=== PATIENT | female | born 2005 | race Caucasian/White ===

== ENCOUNTER 2023-01-20 18:30 | Inpatient (IN) | payer OTHER, SELFPAY ==
--- NOTE | ~2023-01-20 | US_ITS ---
EXAMINATION: US venous doppler [facility] DATE: 01/23/2023 12:24 INDICATION: Lower limb swelling. TECHNIQUE: Grayscale ultrasound images without and with compression and Doppler ultrasound images of the bilateral lower extremity veins were obtained. COMPARISON: None. FINDINGS: The visualized portions of right common femoral vein, profunda (deep) femoral vein, femoral vein, pop liteal vein, peroneal veins, posterior tibial veins, and greater saphenous vein outflow are patent. The visualized portions of left common femoral vein, profunda femoral vein, femoral vein, popliteal v ein, peroneal veins, posterior tibial veins, and greater saphenous vein outflow are patent. IMPRESSION: 1. No deep venous thrombosis. Reviewed, dictated and finalized at location A.
--- NOTE | ~2023-01-20 | CT_ITS ---
Clinical Indication: Chest pain, abdominal pain CT Scan of the Chest, Abdomen, and Pelvis without Contrast: Technique: Contiguous sections were acquired throughout the chest, abdomen, and pelvis without oral o r IV contrast initiation. Dose reduction technique was used on this scan by utilizing automated expos ure control and iterative reconstruction technique. The dose-length product (DLP) was 2301.62 mGy-cm. Findings: There is no evidence of any significant mediastinal, hilar or axillary lymphadenopathy. The mediastin al soft tissues appear normal. There is no evidence of pleural or pericardial effusion. The lungs are clear. No pulmonary nodules or infiltrates are noted. The liver, spleen, pancreas, gallbladder, and adrenal glands are within normal limits. Hyperdense jonnie al medulla are present bilaterally. No evidence of aortic aneurysm. No lymphadenopathy. No bowel obstruction or bowel wall thickening. There is no evidence to suggest acute appendicitis. Urinary bladder is unremarkable. No adnexal mass seen. No ascites. Impression: No significant abnormalities seen. Reviewed, dictated and finalized at [facility]. Impression: No significant abnormalities seen.
--- NOTE | ~2023-01-20 | XR_ITS ---
EXAMINATION: XR chest 2V DATE: 01/23/2023 11:38 INDICATION: Chest pain. Shortness of breath. TECHNIQUE: Frontal and lateral views of the chest were obtained. COMPARISON: Chest 2 views 01/20/2023, chest CT 01/20/2023 FINDINGS: The chest demonstrates clear lungs without pneumonia, pleural effusion, or pneumothorax. Th e heart size is normal. IMPRESSION: 1. No acute cardiopulmonary disease. Reviewed, dictated and finalized at location A.
--- NOTE | ~2023-01-20 | XR_ITS ---
EXAMINATION: XR chest 2V DATE: 01/20/2023 18:54 INDICATION: Chest pain TECHNIQUE: PA and lateral views of the chest were obtained. COMPARISON: None FINDINGS: Increased interstitial opacities with bronchial wall thickening in the right infrahilar region. No fo andrew airspace consolidation, pleural effusion or pneumothorax. The cardiomediastinal silhouette is nor mal. Visualized bones and soft tissues are unremarkable. IMPRESSION: 1. Increased interstitial pattern with bronchial wall thickening in the right infrahilar region which can be seen with bronchitis, reactive airway disease/asthma, mild pulmonary edema or early pneumonia . Reviewed, dictated and finalized at location A. IMPRESSION: 1. Increased interstitial pattern with bronchial wall thickening in the right i nfrahilar region which can be seen with bronchitis, reactive airway disease/ast hma, mild pulmonary edema or early pneumonia.
--- NOTE | ~2023-01-20 | US_ITS ---
EXAMINATION: US venous doppler [facility] DATE: 01/23/2023 12:24 INDICATION: Upper limb swelling. TECHNIQUE: Grayscale ultrasound images without and with compression and Doppler ultrasound images of the bilateral upper extremity veins were obtained. COMPARISON: None. FINDINGS: The visualized portions of the right internal jugular vein, subclavian vein, axillary vein, brachial veins, basilic vein, cephalic vein, radial vein, and ulnar vein are patent. The visualized portions of the left internal jugular vein, subclavian vein, axillary vein, brachial v eins, basilic vein, cephalic vein, radial vein, and ulnar vein are patent. IMPRESSION: 1. No deep venous thrombosis. Reviewed, dictated and finalized at location A.
--- NOTE | ~2023-01-20 | NM_ITS ---
EXAMINATION: NM pulmonary perfusion DATE: 01/23/2023 11:35 INDICATION: Shortness of breath. Chest pain. TECHNIQUE: 6.0 mCi Tc-99m MAA was administered intravenously for perfusion images. Scintigraphic lou ges of the chest were obtained. COMPARISON: CT 01/20/2023, chest 2 views 01/23/2023 FINDINGS: Perfusion images show no defects. IMPRESSION: 1. Pulmonary embolism absent (normal perfusion). Reviewed, dictated and finalized at location A.
--- NOTE | ~2023-01-20 | NM_ITS ---
EXAMINATION: NM hepatobiliary w pharm DATE: 01/24/2023 12:44 INDICATION: Right upper quadrant abdominal pain. COMPARISON: CT abdomen and pelvis 01/20/2023 TECHNIQUE: 4.8 mCi Tc-99m mebrofenin (Choletec) was administered intravenously. Scintigraphic images of the abdomen were obtained for one hour. Then, the patient drank 8 oz Ensure, and imaging was cont inued for 60 minutes. FINDINGS: There is normal clearance of radiotracer from the blood pool. There is homogeneous tracer u ptake by the liver. Activity progresses to the bowel and gallbladder. Gallbladder ejection fraction (GBEF) was 2%. Note that with this technique, normal GBEF >= 33%. IMPRESSION: 1. Low gallbladder ejection fraction, consistent with gallbladder dysfunction and/or chronic cholecy stitis. Reviewed, dictated and finalized at location A. IMPRESSION: 1. Low gallbladder ejection fraction, consistent with gallbladder dysfunction and/or chronic cholecystitis.
--- NOTE | ~2023-01-20 | US_ITS ---
US abdomen limited DATE: 01/21/2023 10:23 INDICATION: Right upper quadrant abdominal pain TECHNIQUE: Real-time imaging of liver, pancreas, gallbladder areas COMPARISON: 01/20/2023 CT chest abdomen pelvis FINDINGS: No gallbladder wall thickening. No gallstones. No pericholecystic fluid collection. Negativ e sonographic Long's sign. The common bile duct measures 3.7 mm, normal. The pancreatic tail is obscured 3 by bowel gas. The pancreas is otherwise unremarkable. IMPRESSION: Negative gallbladder Limited evaluation of pancreas Reviewed, dictated and finalized at Location A. Reviewed, dictated and finalized at location A.
[2023-01-20 18:32] VITALS: BP 171/75; PULSE 109; RESP 20; TEMP 36.6; O2SAT 100
--- NOTE | 2023-01-20 18:42 | ECG_ITS ---
Measurements Intervals [place] Rate: 110 P: 35 MD: 140 QRS: 15 QRSD: 89 T: 23 QT: 322 QTc: 436 Interpretive Statements SINUS TACHYCARDIA MODERATE VOLTAGE CRITERIA FOR LVH, CONSIDER NORMAL VARIANT [MEETS CRITERIA IN ONE OF: R(aVL), S(V1), R(V5), R(V5/V6)+S(V1)] ABNORMAL RHYTHM ECG NO PREVIOUS ECG AVAILABLE FOR COMPARISON Electronically Signed On 01-21-2023 9:37:53 CDT by Petros Dennis M.D.
[2023-01-20] MEDS: ASPIRIN 81 MG CHEWABLE TABLET 324 MG PO (19:09)
[2023-01-20 19:12] VITALS: PULSE 105
[2023-01-20 19:13] VITALS: O2SAT 100
[2023-01-20 19:16] VITALS: BP 154/92; PULSE 110; RESP 16; TEMP 36.2; O2SAT 97
[2023-01-20 19:17] LABS: Hemoglobin 12.2 g/dL (12.0-15.0); Mean Corpuscular HGB Conc 31.3 g/dl (32-36); Mean Corpuscular Hemoglobin 25.1 pg (26-34); Mean Corpuscular Volume 80.2 fl (80-100); Mean Platelet Volume 9.1 fl (7.4-10.4); Platelet Count Result 560 k/mm3 (150-375); Red Blood Count 4.86 M/mm3 (4.2-5.4); Red Cell Distribution Width 15.6 % (11.5-14.5); White Blood Count 22.1 K/mm3 (4.5-10.0)
[2023-01-20 19:27] LABS: Alanine Aminotransferase 22 U/L (6-35); Albumin Level 4.4 g/dL (3.7-5.6); Alkaline Phosphatase 141 U/L (45-116); Anion Gap 9 mmol/L (8-16); Aspartate Amino Transferase 27 U/L (14-36); Bilirubin,Total 0.5 mg/dL (0.2-1.3); Blood Urea Nitrogen 10 mg/dL (8-21); Calcium 8.5 mg/dL (8.9-10.7); Carbon Dioxide 25 mmol/L (22-30); Chloride 105 mmol/L (98-107); Estimated CRCL calculation 197 ml/min; Estimated Glomerular Filt Rate > 60; Glucose 99 mg/dL (65-110); Lipase 85 U/L (23-300); Potassium 3.6 mmol/L (3.4-5.0); Sodium 139 mmol/L (134-143)
[2023-01-20 19:28] LABS: Partial Thromboplastin Time 28.1 SECONDS (22.3-36.8); Prothrombin Time 13.2 Seconds (11.1-14.7)
[2023-01-20 19:39] LABS: Troponin I < 0.012 ng/mL (0.000-0.034)
[2023-01-20 19:41] LABS: Lymphocytes Absolute Manual 5.74 K/mm3 (1.1-4.5); Monocytes Absolute Manual 0.66 K/mm3 (0.1-0.90); Monocytes Percent Manual 3 % (3-9); Neutrophils Percent Manual 71 % (46-73); Total Cells Counted 100
[2023-01-20 19:42] LABS: Hypochromasia 1+ (NORMAL); Platelet Estimate Increased (Adequate); Schistocytes None Seen (NORMAL)
[2023-01-20 19:43] LABS: Anisocytosis 2+ (NORMAL)
[2023-01-20 20:31] VITALS: BP 151/77; PULSE 98; RESP 15; O2SAT 98
--- NOTE | 2023-01-20 21:50 | PC.NURSE ---
Bedside taken negative.
[2023-01-20 22:50] VITALS: BP 123/87; PULSE 103; RESP 15; O2SAT 100
[2023-01-20 23:09] LABS: Troponin I < 0.012 ng/mL (0.000-0.034)
[2023-01-21] VITALS (27 sets, daily range): BP systolic 116–152; BP diastolic 57–89; PULSE 71–114; RESP 14–20; TEMP 36.1–36.5; O2SAT 95–100; BMI 52.4
--- NOTE | 2023-01-21 00:48 | PM.IMHP ---
H&P: HPI History of Present Illness Date/Time: 01/21/23 00:48 Chief Complaint: Chest discomfort Narrative: This is a 17-year-old female with past medical history significant for morbid obesity. Patient presents today to the emergency room after new onset retrosternal chest pain nonradiating, has some shortness of breath associated with it and dizziness happened while she was sitting at her job she was her lunch break had been lifting heavy equipment and boxes, had been in her usual state of health the day before and up until that moment although has really bad reflux denies any shortness of breath, cough, sputum production, fevers, rigors, chills, nausea, vomiting, diarrhea, abdominal pain, leg swelling, . Preliminary workup was significant for chest x-ray was reported as: EXAMINATION: XR chest 2V DATE: 01/20/2023 18:54 INDICATION: Chest pain TECHNIQUE: PA and lateral views of the chest were obtained. COMPARISON: None FINDINGS: Increased interstitial opacities with bronchial wall thickening in the right infrahilar region. No focal airspace consolidation, pleural effusion or pneumothorax. The cardiomediastinal silhouette is normal. Visualized bones and soft tissues are unremarkable. IMPRESSION: 1. Increased interstitial pattern with bronchial wall thickening in the right infrahilar region which can be seen with bronchitis, reactive airway disease/asthma, mild pulmonary edema or early pneumonia. Clinical Indication: Chest pain, abdominal pain CT Scan of the Chest, Abdomen, and Pelvis without Contrast: Technique: Contiguous sections were acquired throughout the chest, abdomen, and pelvis without oral or IV contrast initiation. Dose reduction technique was used on this scan by utilizing automated exposure control and iterative reconstruction technique. The dose-length product (DLP) was 2301.62 mGy-cm. Findings: There is no evidence of any significant mediastinal, hilar or axillary lymphadenopathy. The mediastinal soft tissues appear normal. There is no evidence of pleural or pericardial effusion. The lungs are clear. No pulmonary nodules or infiltrates are noted. The liver, spleen, pancreas, gallbladder, and adrenal glands are within normal limits. Hyperdense renal medulla are present bilaterally. No evidence of aortic aneurysm.? No lymphadenopathy. No bowel obstruction or bowel wall thickening. There is no evidence to suggest acute appendicitis. Urinary bladder is unremarkable. No adnexal mass seen. No ascites. Impression: No significant abnormalities seen. US abdomen limited DATE: 01/21/2023 10:23 INDICATION: Right upper quadrant abdominal pain? TECHNIQUE: Real-time imaging of liver, pancreas, gallbladder areas? COMPARISON: 01/20/2023 CT chest abdomen pelvis? FINDINGS: No gallbladder wall thickening. No gallstones. No pericholecystic fluid collection. Negative sonographic Long's sign. The common bile duct measures 3.7 mm, normal. The pancreatic tail is obscured 3 by bowel gas. The pancreas is otherwise unremarkable.? IMPRESSION: Negative gallbladder Limited evaluation of pancreas? Review of Systems Review of Systems: Retrosternal chest pain, shortness of breath, dizziness. Constitutional: Constitutional: Denies chills, Denies fatigue, Denies fever(s), Denies malaise, Denies night sweats and Denies weakness Eyes: Eyes: Denies change in vision ENT: Denies dysphagia and Denies odynophagia Cardiovascular: Cardiovascular: Reports chest pain, Denies leg edema, Reports lightheadedness, Denies radiating jaw, neck or arm pain, Denies palpitations and Reports dyspnea Respiratory: Respiratory: Denies chest congestion, Denies cough, Denies excessive phlegm production and Denies wheezing Gastrointestinal: Gastrointestinal: Denies abdominal pain, Denies dyspepsia, Reports heartburn, Denies diarrhea, Denies nausea and Denies vomiting Genitourinary: Genitourinary: Denies dysuria and Denies flank pain
--- NOTE | 2023-01-21 00:53 | ED.GENADULT ---
HPI - General Adult General Chief complaint: Chest Pain Stated complaint: chest pain/SOB Time Seen by Provider: 01/20/23 20:23 History of Present Illness HPI narrative: Patient is a 17-year-old female who presents the emergency department with chief chest pain. The patient reports she was at work and had sudden onset pain right side of her chest side patient reports she was eating a sandwich when this occurred started belching and the symptoms have worsened. Patient states that she is also been consuming a fair amount of soda and has been having little more anxious than normal. Patient states that the pain is not improved by anything. Related Data Allergies Allergy/AdvReac Type Severity Reaction Status Date / Time No Known Allergies Allergy Verified 01/20/23 19:07 Review of Systems Review of Systems: A 10 system review of systems was completed on the patient and is negative except for what is stated in the HPI. Nursing and ancillary documentation was reviewed. Exam Narrative: GENERAL: Well-appearing, well-nourished, and in no acute distress. HEAD: Normocephalic, atraumatic. EYES: PERRLA and EOMI. ENT: Nares clear, no rhinorrhea or epistaxis. Mucous membranes moist. NECK: Supple. CHEST: Clear to auscultation. No respiratory distress. HEART: Regular rate and rhythm. No murmur heard. Normal peripheral pulses. ABDOMEN: Soft, tender in the right upper quadrant, nondistended, normal active bowel sounds. EXTREMITIES: Normal range of motion. No edema. SKIN: Warm, dry, no rash. NEURO: No focal deficits. Alert and oriented x3. PSYCH: Normal mood and affect. Course Vital Signs Vital signs: Vital Signs Temperature 36.6 C 01/20/23 18:32 Pulse Rate 109 H 01/20/23 18:32 Respiratory Rate 20 01/20/23 18:32 Blood Pressure 171/75 H 01/20/23 18:32 Pulse Oximetry 100 01/20/23 18:32 Oxygen Delivery Room Air 01/20/23 18:32 Temperature 36.2 C L 01/20/23 19:16 Pulse Rate 103 H 01/20/23 22:50 Respiratory Rate 15 01/20/23 22:50 Blood Pressure 123/87 01/20/23 22:50 Pulse Oximetry 100 01/20/23 22:50 Oxygen Delivery Room Air 01/20/23 19:13 Medical Decision Making MDM Narrative Medical decision making narrative: Differential diagnosis includes pneumonia, pulmonary embolism, bronchitis, cholelithiasis, cholecystitis pancreatitis Laboratory studies were obtained on the patient which showed a white count of 22,000. Electrolytes are within normal limits initial troponin was negative delta troponin was negative as well lipase was 85 The patient was a very difficult IV stick and upon getting an IV in place and the patient are going CT PE protocol the IV did not provide adequate flow for doing the scan. Multiple attempts were made to place an IV and the patient has very small veins that precluded good venous access. It was discussed with the patient central access versus doing a VQ scan with the family and patient of opted for doing a VQ scan. Given the leukocytosis blood cultures were obtained and the patient was given a dose of Rocephin in the emergency department as the chest x-ray showed may be there is a possibility of bronchitis even though this was not redemonstrated on the CT scan The case was discussed with Dr. Bobo and the patient will be admitted to the hospital Vital Signs Vital Signs: Vital Signs Temperature 36.6 C 01/20/23 18:32 Pulse Rate 109 H 01/20/23 18:32 Respiratory Rate 20 01/20/23 18:32 Blood Pressure 171/75 H 01/20/23 18:32 Pulse Oximetry 100 01/20/23 18:32 Oxygen Delivery Room Air 01/20/23 18:32 Temperature 36.2 C L 01/20/23 19:16 Pulse Rate 103 H 01/20/23 22:50 Respiratory Rate 15 01/20/23 22:50 Blood Pressure 123/87 01/20/23 22:50 Pulse Oximetry 100 01/20/23 22:50 Oxygen Delivery Room Air 01/20/23 19:13 Lab Data 01/20/23 19:10 01/20/23 19:10 Labs: Lab Results 01/20/23
[2023-01-21 02:00] LABS: Appearance Urine Turbid (Clear); Bacteria Urine 4+ /hpf; Bilirubin Urine Negative (Negative); Blood Urine Negative (Negative); Color Urine Yellow (Yellow); Glucose Urine UA Negative (Negative); Ketones Urine Negative (Negative); Leukocyte Esterase Ur 1+ LEU/UL (Negative); Need Manual Microscopic Reviewed; Nitrate Urine Negative (Negative); Non Pathogenic Casts 0-2; Protein Urine Negative (Negative); Specific Grav Ur 1.022 (1.001-1.035); Squamous Epithelial Cell Urine Many /hpf (Few); Urobilinogen Urine 0.2 mg/dL (<2.0)
[2023-01-21 02:01] LABS: Add Urine Microscopic? YES
--- NOTE | 2023-01-21 02:10 | PC.NURSE ---
This patient, Claire Stanton, was admitted to IMU Room 209-01. Patient/family oriented to hospital policies and general routines including ID bracelet, bed and alarms, visiting hours, pain management, procedures, bathroom and other care routines, personal items, smoking policy, room service/diet, and visiting hours. Information on how to activate the Rapid Response Team has been discussed. Patient/Family are encouraged to report perceived risks to care and to ask questions if they do not understand what they are told or what they should do.
[2023-01-21 02:15] LABS: Troponin I < 0.012 ng/mL (0.000-0.034)
[2023-01-21] MEDS: IPRATROPIUM BR 0.02% INH SOLN 0.5 MG/2.5 ML VIAL INHALATION ×3 (02:36→14:35)
[2023-01-21] MEDS: ALBUTEROL SULFATE NEB 2.5 MG/3 ML INH INHALATION ×3 (02:37→14:35)
[2023-01-21] MEDS: ACETAMINOPHEN 500 MG TABLET 1000 MG PO ×2 (03:22→10:19)
--- NOTE | 2023-01-21 13:40 | PC.NURSE ---
Per Dr. Grey larson for patient to remove telemetry to shower.
--- NOTE | 2023-01-21 14:21 | PM.IMPN ---
Progress Note: A&P Assessment and Plan (1) Opacities of both lungs present on chest x-ray: Code(s): R91.8 - Other nonspecific abnormal finding of lung field Status: Acute Assessment and Plan: CT chest abdomen pelvis was however negative for any acute findings started on Rocephin based on elevated WBC abnormal chest x-ray Will recheck WBC count and monitor remains on Rocephin blood culture pending (2) Chest pain: Qualifiers: Chest pain type: unspecified Qualified Code(s): R07.9 - Chest pain, unspecified Code(s): R07.9 - Chest pain, unspecified Status: Acute Assessment and Plan: EKG with no changes CTA Not been done and was done without contrast V/Q scan planned Troponin x2 negative (3) Right upper quadrant abdominal pain: Code(s): R10.11 - Right upper quadrant pain Status: Acute Assessment and Plan: ultrasound gallbladder with no cholelithiasis (4) Morbid obesity with BMI of 60.0-69.9, adult: Code(s): E66.01 - Morbid (severe) obesity due to excess calories; Z68.44 - Body mass index [BMI] 60.0-69.9, adult Status: Acute Assessment and Plan: Lifestyle and diet modifications Subjective Date/time seen: 01/21/23 14:21 Interval history: Reports right shoulder pain. It worsens with food that she noticed today. Place she has been having some chest pain yesterday which has resolved. Review of Systems Review of Systems: All systems reviewed & are unremarkable except as noted in HPI and below Exam Narrative: GENERAL: Well-appearing, well-nourished, and in no acute distress. HEAD: Normocephalic, atraumatic. EYES: PERRLA and EOMI. ENT: Nares clear, no rhinorrhea or epistaxis.? Mucous membranes moist. NECK: Supple. Nontender CHEST: Clear to auscultation.? No respiratory distress. HEART: Regular rate and rhythm.? No murmur heard.? Normal peripheral pulses. ABDOMEN: Soft, nontender, nondistended, normal active bowel sounds. EXTREMITIES: Normal range of motion.? No edema. SKIN: Warm, dry, no rash. NEURO: No focal deficits.? Alert and oriented x3. PSYCH: Normal mood and affect. Objective Data Vital Signs Vital Signs: Vital Signs - 24 hr 01/20/23 18:32 01/20/23 19:12 01/20/23 19:13 Temperature 97.8 F Pulse Rate 109 H 105 H Respiratory Rate 20 Blood Pressure 171/75 H Pulse Oximetry 100 100 Oxygen Delivery Room Air Room Air 01/20/23 19:16 01/20/23 20:31 01/20/23 22:50 Temperature 97.1 F L Pulse Rate 110 H 98 103 H Respiratory Rate 16 15 15 Blood Pressure 154/92 H 151/77 H 123/87 Pulse Oximetry 97 98 100 Oxygen Delivery 01/21/23 01:03 01/21/23 01:58 01/21/23 02:17 Temperature 97.6 F 97 F L Pulse Rate 99 93 93 Respiratory Rate 18 14 20 Blood Pressure 121/64 144/89 H 143/78 H Pulse Oximetry 99 99 100 Oxygen Delivery 01/21/23 02:30 01/21/23 02:39 01/21/23 02:12 Temperature Pulse Rate 89 90 92 Respiratory Rate 18 18 Blood Pressure Pulse Oximetry Oxygen Delivery 01/21/23 02:12 01/21/23 04:00 01/21/23 04:00 Temperature 97.2 F L Pulse Rate 94 91 Respiratory Rate 20 Blood Pressure 135/57 L Pulse Oximetry 100 98 Oxygen Delivery Room Air 01/21/23 04:00 01/21/23 06:00 01/21/23 08:07 Temperature 96.9 F L Pulse Rate 83 76 Respiratory Rate 20 Blood Pressure 116/63 Pulse Oximetry 98 100 Oxygen Delivery Room Air 01/21/23 08:00 01/21/23 08:30 01/21/23 08:41 Temperature Pulse Rate 85 86 Respiratory Rate 18 Blood Pressure Pulse Oximetry 95 Oxygen Delivery Room Air 01/21/23 08:56 01/21/23 08:00 01/21/23 10:00 Temperature Pulse Rate 88 88 80 Respiratory Rate 18 18 Blood Pressure Pulse Oximetry 95 Oxygen Delivery Room Air 01/21/23 11:34 01/21/23 12:00 01/21/23 12:00 Temperature 97.5 F L Pulse Rate 80 88 81 Respiratory Rate 20 Blood Pressure 143/65 H Pulse Oximetry 98 98 Oxygen Delivery Room Air
[2023-01-21 16:06] LABS: Basophils Absolute Auto 0.1 K/mm3 (0.0-0.1); Basophils Percent Auto 0.3 % (0.2-1.2); Eosinophils Absolute Auto 0.1 K/mm3 (0-0.3); Eosinophils Percent Auto 0.3 % (0-4.4); Hematocrit 41.1 % (37.0-47.0); Hemoglobin 12.6 g/dL (12.0-15.0); Immature Granulocyte Absolute 0.06 K/mm3 (0.00-0.031); Immature Granulocyte Percent A 0.3 % (0-0.5); Lymphocytes Absolute Auto 5.27 K/mm3 (0.9-3.2); Lymphocytes Percent Auto 30.3 % (18.3-44.2); Mean Corpuscular HGB Conc 30.7 g/dl (32-36); Mean Corpuscular Hemoglobin 25.5 pg (26-34); Mean Platelet Volume 9.3 fl (7.4-10.4); Monocytes Percent Auto 5.8 % (2.6-8.5); Platelet Count Result 591 k/mm3 (150-375); Red Blood Count 4.95 M/mm3 (4.2-5.4); White Blood Count 17.4 K/mm3 (4.5-10.0)
[2023-01-21 16:17] LABS: Alanine Aminotransferase 17 U/L (6-35); Albumin Level 4.2 g/dL (3.7-5.6); Alkaline Phosphatase 119 U/L (45-116); Anion Gap 8 mmol/L (8-16); Aspartate Amino Transferase 26 U/L (14-36); Bilirubin,Total 1.2 mg/dL (0.2-1.3); Blood Urea Nitrogen 8 mg/dL (8-21); Calcium 8.7 mg/dL (8.9-10.7); Carbon Dioxide 20 mmol/L (22-30); Chloride 109 mmol/L (98-107); Estimated CRCL calculation 196 ml/min; Estimated Glomerular Filt Rate > 60; Glucose 95 mg/dL (65-110); Potassium 4.1 mmol/L (3.4-5.0); Sodium 137 mmol/L (134-143)
[2023-01-21] MEDS: AZITHROMYCIN 500 MG/NS 250 ML 500 MG/250 ML BAG 250 MG IVPB (16:42)
--- NOTE | 2023-01-21 22:10 | PC.NURSE ---
This patient, Claire Stanton, was transferred to room 327 on 01/21/23 at 2115. Personal belongings sent with patient. Report given to GARDENIA Johnson. Appropriate documentation sent with patient.
[2023-01-22] VITALS (9 sets, daily range): BP systolic 115–132; BP diastolic 52–70; PULSE 82–94; RESP 16–20; TEMP 36.4; O2SAT 97–100
[2023-01-22] MEDS: ACETAMINOPHEN 500 MG TABLET 1000 MG PO ×2 (00:11→15:29)
[2023-01-22] MEDS: MELATONIN 5 MG TABLET PO ×2 (00:47→23:33)
--- NOTE | 2023-01-22 00:57 | ADMGEN ---
This patient, Claire Stanton, was admitted to [facility] Room 327-01. Patient/family oriented to hospital policies and general routines including ID bracelet, bed and alarms, visiting hours, pain management, procedures, bathroom and other care routines, personal items, smoking policy, room service/diet, and visiting hours. Information on how to activate the Rapid Response Team has been discussed. Patient/Family are encouraged to report perceived risks to care and to ask questions if they do not understand what they are told or what they should do.
[2023-01-22 06:09] LABS: Basophils Absolute Auto 0.1 K/mm3 (0.0-0.1); Basophils Percent Auto 0.3 % (0.2-1.2); Eosinophils Absolute Auto 0.1 K/mm3 (0-0.3); Eosinophils Percent Auto 0.7 % (0-4.4); Hematocrit 34.1 % (37.0-47.0); Hemoglobin 10.6 g/dL (12.0-15.0); Immature Granulocyte Absolute 0.07 K/mm3 (0.00-0.031); Immature Granulocyte Percent A 0.4 % (0-0.5); Lymphocytes Absolute Auto 5.33 K/mm3 (0.9-3.2); Lymphocytes Percent Auto 33.2 % (18.3-44.2); Mean Corpuscular HGB Conc 31.1 g/dl (32-36); Mean Corpuscular Hemoglobin 24.8 pg (26-34); Mean Corpuscular Volume 79.9 fl (80-100); Mean Platelet Volume 9.4 fl (7.4-10.4); Monocytes Absolute Auto 1.1 K/mm3 (0.1-0.6); Monocytes Percent Auto 6.9 % (2.6-8.5); Neutrophils Absolute Auto 9.4 K/mm3 (1.3-6.7); Neutrophils Percent Auto 58.5 % (45.5-73.1); Platelet Count Result 502 k/mm3 (150-375); Red Blood Count 4.27 M/mm3 (4.2-5.4); Red Cell Distribution Width 15.8 % (11.5-14.5); White Blood Count 16.1 K/mm3 (4.5-10.0)
[2023-01-22 06:21] LABS: Anion Gap 5 mmol/L (8-16); Blood Urea Nitrogen 7 mg/dL (8-21); Calcium 8.2 mg/dL (8.9-10.7); Carbon Dioxide 27 mmol/L (22-30); Chloride 106 mmol/L (98-107); Estimated CRCL calculation 166 ml/min; Estimated Glomerular Filt Rate > 60; Glucose 95 mg/dL (65-110); Potassium 3.8 mmol/L (3.4-5.0); Sodium 138 mmol/L (134-143)
[2023-01-22] MEDS: ALBUTEROL SULFATE NEB 2.5 MG/3 ML INH INHALATION ×3 (07:40→20:51)
[2023-01-22] MEDS: IPRATROPIUM BR 0.02% INH SOLN 0.5 MG/2.5 ML VIAL INHALATION ×3 (07:41→20:51)
--- NOTE | 2023-01-22 12:26 | PM.IMPN ---
Progress Note: A&P Assessment and Plan (1) Opacities of both lungs present on chest x-ray: Code(s): R91.8 - Other nonspecific abnormal finding of lung field Status: Acute Assessment and Plan: Admit to regular medical floor Started on Rocephin and Zithromax Breathing treatments Cultures in progress which remains negative Continue to monitor Supportive care Leukocytosis the improving continues to be persistent. (2) Chest pain: Qualifiers: Chest pain type: unspecified Qualified Code(s): R07.9 - Chest pain, unspecified Code(s): R07.9 - Chest pain, unspecified Status: Acute Assessment and Plan: EKG with no changes CT chest abdomen and pelvis reviewed and shows no acute findings now resolved (3) Right upper quadrant abdominal pain: Code(s): R10.11 - Right upper quadrant pain Status: Acute Assessment and Plan: Follow-up in outpatient setting Gallbladder ultrasound came back negative for gallstone (4) Morbid obesity with BMI of 60.0-69.9, adult: Code(s): E66.01 - Morbid (severe) obesity due to excess calories; Z68.44 - Body mass index [BMI] 60.0-69.9, adult Status: Acute Assessment and Plan: Lifestyle and diet modifications Plan Persistent leukocytosis unclear etiology continue IV antibiotics as ordered. Will check venous duplex for underlying DVT lung scan still pending for tomorrow. Subjective Date/time seen: 01/22/23 12:26 Interval history: Feels tired. Right shoulder pain better some chest tightness intermittently present. Some breathing issues no cough no wheezing Review of Systems Review of Systems: All systems reviewed & are unremarkable except as noted in HPI and below Exam Narrative: GENERAL: Well-appearing, well-nourished, and in no acute distress. HEAD: Normocephalic, atraumatic. EYES: PERRLA and EOMI. ENT: Nares clear, no rhinorrhea or epistaxis.? Mucous membranes moist. NECK: Supple. Nontender CHEST: Clear to auscultation.? No respiratory distress. HEART: Regular rate and rhythm.? No murmur heard.? Normal peripheral pulses. ABDOMEN: Soft, nontender, nondistended, normal active bowel sounds. EXTREMITIES: Normal range of motion.? No edema. SKIN: Warm, dry, no rash. NEURO: No focal deficits.? Alert and oriented x3. PSYCH: Normal mood and affect. Objective Data Vital Signs Vital Signs: Vital Signs - 24 hr 01/21/23 14:36 01/21/23 14:45 01/21/23 14:00 Temperature Pulse Rate 71 73 80 Respiratory Rate 18 18 Blood Pressure Pulse Oximetry Oxygen Delivery 01/21/23 16:00 01/21/23 16:10 01/21/23 18:00 Temperature 97.7 F Pulse Rate 114 H 97 Respiratory Rate Blood Pressure 152/89 H Pulse Oximetry 100 Oxygen Delivery Room Air 01/21/23 19:47 01/21/23 20:19 01/21/23 20:20 Temperature 97.6 F Pulse Rate 72 91 Respiratory Rate 20 18 Blood Pressure 129/68 Pulse Oximetry 98 97 Oxygen Delivery Room Air 01/21/23 20:00 01/21/23 20:33 01/21/23 22:46 Temperature Pulse Rate 72 94 Respiratory Rate 20 18 Blood Pressure Pulse Oximetry 98 Oxygen Delivery Room Air Room Air 01/21/23 23:06 01/22/23 07:42 01/22/23 07:43 Temperature 97 F L Pulse Rate 96 90 Respiratory Rate 16 18 Blood Pressure 129/60 Pulse Oximetry 100 97 Oxygen Delivery Room Air 01/22/23 08:00 01/22/23 08:00 01/22/23 07:47 Temperature 97.6 F Pulse Rate 82 90 Respiratory Rate 20 18 Blood Pressure 115/52 L Pulse Oximetry 100 Oxygen Delivery Room Air Intake/Output Intake/Output: Intake & Output 01/19/23 01/20/23 01/21/23 01/22/23 23:59 23:59 23:59 23:59 Intake Total 1280 1530 Output Total 1400 Balance -120 1530 Meds/Results Medications: Active Medications Generic Name Dose Route Start Last Admin Trade Name Freq PRN Reason Stop Dose Admin Acetaminophen 1,000 mg 01/21/23 02:53 01/22/23 00:11 Acetaminophen 500 Mg Tablet PO 1,
[2023-01-22] MEDS: AZITHROMYCIN 500 MG/NS 250 ML 500 MG/250 ML BAG 250 MG IVPB (13:26)
[2023-01-22] MEDS: PANTOPRAZOLE 40 MG TABLET PO (13:26)
[2023-01-23] VITALS (7 sets, daily range): BP systolic 126–148; BP diastolic 62–74; PULSE 79–107; RESP 14–20; TEMP 35.6–36.9; O2SAT 97–100
[2023-01-23 06:41] LABS: Basophils Percent Auto 0.2 % (0.2-1.2); Eosinophils Absolute Auto 0.2 K/mm3 (0-0.3); Eosinophils Percent Auto 1.2 % (0-4.4); Hematocrit 36.1 % (37.0-47.0); Hemoglobin 11.1 g/dL (12.0-15.0); Immature Granulocyte Absolute 0.07 K/mm3 (0.00-0.031); Immature Granulocyte Percent A 0.4 % (0-0.5); Lymphocytes Absolute Auto 5.26 K/mm3 (0.9-3.2); Lymphocytes Percent Auto 33.7 % (18.3-44.2); Mean Corpuscular HGB Conc 30.7 g/dl (32-36); Mean Corpuscular Hemoglobin 24.9 pg (26-34); Mean Corpuscular Volume 81.1 fl (80-100); Mean Platelet Volume 9.4 fl (7.4-10.4); Monocytes Absolute Auto 1.2 K/mm3 (0.1-0.6); Monocytes Percent Auto 7.5 % (2.6-8.5); Neutrophils Absolute Auto 8.9 K/mm3 (1.3-6.7); Platelet Count Result 514 k/mm3 (150-375); Red Blood Count 4.45 M/mm3 (4.2-5.4); Red Cell Distribution Width 15.9 % (11.5-14.5); White Blood Count 15.6 K/mm3 (4.5-10.0)
[2023-01-23 06:57] LABS: Alanine Aminotransferase 17 U/L (6-35); Albumin Level 3.8 g/dL (3.7-5.6); Alkaline Phosphatase 109 U/L (45-116); Anion Gap 8 mmol/L (8-16); Aspartate Amino Transferase 17 U/L (14-36); Bilirubin,Total 0.7 mg/dL (0.2-1.3); Blood Urea Nitrogen 9 mg/dL (8-21); Calcium 8.3 mg/dL (8.9-10.7); Carbon Dioxide 24 mmol/L (22-30); Chloride 107 mmol/L (98-107); Estimated CRCL calculation 195 ml/min; Estimated Glomerular Filt Rate > 60; Glucose 95 mg/dL (65-110); Magnesium 2.2 mg/dL (1.6-2.3); Potassium 3.8 mmol/L (3.4-5.0); Sodium 139 mmol/L (134-143)
[2023-01-23] MEDS: PANTOPRAZOLE 40 MG TABLET PO (09:42)
--- NOTE | 2023-01-23 10:23 | PC.NURSE ---
Assessment charted by Lorena OMER, Reviewed by GARDENIA Beverly.
[2023-01-23] MEDS: ACETAMINOPHEN 500 MG TABLET 1000 MG PO (10:51)
[2023-01-23] MEDS: AZITHROMYCIN 500 MG/NS 250 ML 500 MG/250 ML BAG 250 MG IVPB (14:11)
[2023-01-23] MEDS: LACTASE 3,000 UNIT TABLET 3000 UNIT PO (14:12)
[2023-01-23] MEDS: IPRATROPIUM BR 0.02% INH SOLN 0.5 MG/2.5 ML VIAL INHALATION (15:15)
[2023-01-23] MEDS: ALBUTEROL SULFATE NEB 2.5 MG/3 ML INH INHALATION (15:16)
--- NOTE | 2023-01-23 16:41 | PM.IMPN ---
Progress Note: A&P Assessment and Plan (1) Opacities of both lungs present on chest x-ray: Code(s): R91.8 - Other nonspecific abnormal finding of lung field Status: Acute Assessment and Plan: Admit to regular medical floor Started on Rocephin and Zithromax Breathing treatments Cultures in progress which remains negative Continue to monitor Supportive care Leukocytosis the improving continues to be persistent. could this be acalculous cholecystitis (2) Chest pain: Qualifiers: Chest pain type: unspecified Qualified Code(s): R07.9 - Chest pain, unspecified Code(s): R07.9 - Chest pain, unspecified Status: Acute Assessment and Plan: EKG with no changes CT chest abdomen and pelvis reviewed and shows no acute findings now resolved (3) Right upper quadrant abdominal pain: Code(s): R10.11 - Right upper quadrant pain Status: Acute Assessment and Plan: Follow-up in outpatient setting Gallbladder ultrasound came back negative for gallstone (4) Morbid obesity with BMI of 60.0-69.9, adult: Code(s): E66.01 - Morbid (severe) obesity due to excess calories; Z68.44 - Body mass index [BMI] 60.0-69.9, adult Status: Acute Assessment and Plan: Lifestyle and diet modifications Plan Persistent leukocytosis unclear etiology continue IV antibiotics . venous duplex for underlying DVT lung scan negative. will add flagyl for anaerobic coverage Subjective Date/time seen: 01/23/23 16:41 Interval history: still having intermittent pain in the right upper quadrant mostly. no fever, chills. reviwed lab results. discussed with family . no nausea, vmoiting. no cough or sob. Review of Systems Review of Systems: All systems reviewed & are unremarkable except as noted in HPI and below Exam Narrative: GENERAL: Well-appearing, well-nourished, and in no acute distress. HEAD: Normocephalic, atraumatic. EYES: PERRLA and EOMI. ENT: Nares clear, no rhinorrhea or epistaxis.? Mucous membranes moist. NECK: Supple. Nontender CHEST: Clear to auscultation.? No respiratory distress. HEART: Regular rate and rhythm.? No murmur heard.? Normal peripheral pulses. ABDOMEN: Soft, midly tender RUQ, nondistended, normal active bowel sounds. EXTREMITIES: Normal range of motion.? No edema. SKIN: Warm, dry, no rash. NEURO: No focal deficits.? Alert and oriented x3. PSYCH: Normal mood and affect. Objective Data Vital Signs Vital Signs: Vital Signs - 24 hr 01/22/23 20:53 01/23/23 00:00 01/22/23 20:00 Temperature 98.5 F Pulse Rate 94 79 94 Respiratory Rate 16 18 16 Blood Pressure 127/70 Pulse Oximetry 100 100 Oxygen Delivery Room Air 01/23/23 06:52 01/23/23 09:13 01/23/23 14:58 Temperature 96.1 F L 97.3 F L Pulse Rate 82 85 97 Respiratory Rate 18 18 14 Blood Pressure 126/62 148/74 H Pulse Oximetry 99 97 99 Oxygen Delivery Room Air 01/23/23 15:18 01/23/23 15:25 Temperature Pulse Rate 107 H 107 H Respiratory Rate 20 20 Blood Pressure Pulse Oximetry Oxygen Delivery Intake/Output Intake/Output: Intake & Output 01/20/23 01/21/23 01/22/23 01/23/23 23:59 23:59 23:59 23:59 Intake Total 1280 2310 1430 Output Total 1400 2000 2750 Balance -120 310 -1320 Meds/Results Medications: Active Medications Generic Name Dose Route Start Last Admin Trade Name Freq PRN Reason Stop Dose Admin Acetaminophen 1,000 mg 01/21/23 02:53 01/23/23 10:51 Acetaminophen 500 Mg Tablet PO 1,000 mg Q6H PRN Administration Mild Pain (1-3) or Fever Albuterol 2.5 mg 01/21/23 02:00 01/23/23 15:16 Albuterol Sulfate Neb 2.5 Mg/3 Ml Inh INHALATION 2.5 mg Q6HRT MARTI Administration Ceftriaxone Sodium 1 gm in 50 mls @ 100 mls/hr 01/22/23 01:00 01/23/23 00:03 Rocephin 1 Gm/Ns 50 Ml IVPB Infused Q24H MARTI Infusion Azithromycin 500 mg in 250 mls @ 250 mls/hr 01/21/23 14:00 01/23/23 14:11 Zithromax IVPB 250 mls/hr
--- NOTE | 2023-01-23 17:33 | PC.NURSE ---
Pt had dopplers and pulmonary function testing done today. Pt reports abdominal cramping r/t impending menstruation. Pt has no other reports of pain at this time. Pt participated and contributed in plan of care. Pt receiving antibiotics and tolerating well. Will continue to monitor pt.
[2023-01-23] MEDS: metroNIDAZOLE 500 MG/ISO 100ML 500 MG/100 ML BAG 100 MG IVPB (17:40)
[2023-01-24] MEDS: metroNIDAZOLE 500 MG/ISO 100ML 500 MG/100 ML BAG 100 MG IVPB ×3 (01:12→18:17)
[2023-01-24 05:52] VITALS: BP 119/53; PULSE 70; RESP 14; TEMP 36.1; O2SAT 99
[2023-01-24] MEDS: IPRATROPIUM BR 0.02% INH SOLN 0.5 MG/2.5 ML VIAL INHALATION (06:42)
[2023-01-24] MEDS: ALBUTEROL SULFATE NEB 2.5 MG/3 ML INH INHALATION (06:42)
[2023-01-24 06:44] VITALS: PULSE 74; RESP 16; O2SAT 98
[2023-01-24 06:52] VITALS: PULSE 80; RESP 18
[2023-01-24 08:00] LABS: Basophils Absolute Auto 0.1 K/mm3 (0.0-0.1); Basophils Percent Auto 0.3 % (0.2-1.2); Eosinophils Absolute Auto 0.2 K/mm3 (0-0.3); Eosinophils Percent Auto 0.9 % (0-4.4); Hematocrit 37.4 % (37.0-47.0); Hemoglobin 11.6 g/dL (12.0-15.0); Immature Granulocyte Absolute 0.12 K/mm3 (0.00-0.031); Immature Granulocyte Percent A 0.8 % (0-0.5); Lymphocytes Absolute Auto 5.29 K/mm3 (0.9-3.2); Lymphocytes Percent Auto 33.1 % (18.3-44.2); Mean Corpuscular Hemoglobin 25.7 pg (26-34); Mean Corpuscular Volume 82.7 fl (80-100); Mean Platelet Volume 9.4 fl (7.4-10.4); Monocytes Absolute Auto 0.9 K/mm3 (0.1-0.6); Monocytes Percent Auto 5.9 % (2.6-8.5); Neutrophils Absolute Auto 9.4 K/mm3 (1.3-6.7); Platelet Count Result 526 k/mm3 (150-375); Red Blood Count 4.52 M/mm3 (4.2-5.4); Red Cell Distribution Width 15.9 % (11.5-14.5)
[2023-01-24 08:09] LABS: Alanine Aminotransferase 17 U/L (6-35); Alkaline Phosphatase 111 U/L (45-116); Anion Gap 8 mmol/L (8-16); Aspartate Amino Transferase 19 U/L (14-36); Bilirubin,Total 0.9 mg/dL (0.2-1.3); Blood Urea Nitrogen 8 mg/dL (8-21); Calcium 8.5 mg/dL (8.9-10.7); Carbon Dioxide 25 mmol/L (22-30); Chloride 107 mmol/L (98-107); Estimated CRCL calculation 167 ml/min; Estimated Glomerular Filt Rate > 60; Glucose 105 mg/dL (65-110); Magnesium 2.1 mg/dL (1.6-2.3); Potassium 3.6 mmol/L (3.4-5.0); Sodium 140 mmol/L (134-143)
[2023-01-24] MEDS: ACETAMINOPHEN 500 MG TABLET 1000 MG PO ×2 (12:55→21:47)
--- NOTE | 2023-01-24 13:17 | PM.IMPN ---
Progress Note: A&P Assessment and Plan (1) Opacities of both lungs present on chest x-ray: Code(s): R91.8 - Other nonspecific abnormal finding of lung field Status: Acute Assessment and Plan: Admit to regular medical floor Started on Rocephin and Zithromax Breathing treatments Cultures in progress which remains negative Continue to monitor Supportive care Leukocytosis the improving continues to be persistent. could this be acalculous cholecystitis. (2) Chest pain: Qualifiers: Chest pain type: unspecified Qualified Code(s): R07.9 - Chest pain, unspecified Code(s): R07.9 - Chest pain, unspecified Status: Acute Assessment and Plan: EKG with no changes CT chest abdomen and pelvis reviewed and shows no acute findings now resolved (3) Right upper quadrant abdominal pain: Code(s): R10.11 - Right upper quadrant pain Status: Acute Assessment and Plan: Follow-up in outpatient setting Gallbladder ultrasound came back negative for gallstone (4) Morbid obesity with BMI of 60.0-69.9, adult: Code(s): E66.01 - Morbid (severe) obesity due to excess calories; Z68.44 - Body mass index [BMI] 60.0-69.9, adult Status: Acute Assessment and Plan: Lifestyle and diet modifications Plan Persistent leukocytosis unclear etiology continue IV antibiotics . venous duplex for underlying DVT lung scan negative. will add flagyl for anaerobic coverage. Further evaluation with HIDA scan was performed today which showed low gallbladder ejection fraction 2% suggestive of gallbladder dysfunction likely related to acalculous cholecystitis. General surgery has been consulted and awaiting their recommendations. Continue ceftriaxone and Flagyl for antibiotic coverage. Discontinue azithromycin Subjective Date/time seen: 01/24/23 13:17 Interval history: No overnight events. still having intermittent pain in the right upper quadrant mostly. no fever, chills. reviwed lab results. discussed with family . Persistent leukocytosis noted HIDA scan reviewed with the patient and family. Review of Systems Review of Systems: All systems reviewed & are unremarkable except as noted in HPI and below Exam Narrative: GENERAL: Well-appearing, well-nourished, and in no acute distress. HEAD: Normocephalic, atraumatic. EYES: PERRLA and EOMI. ENT: Nares clear, no rhinorrhea or epistaxis.? Mucous membranes moist. NECK: Supple. Nontender CHEST: Clear to auscultation.? No respiratory distress. HEART: Regular rate and rhythm.? No murmur heard.? Normal peripheral pulses. ABDOMEN: Soft, midly tender RUQ, nondistended, normal active bowel sounds. EXTREMITIES: Normal range of motion.? No edema. SKIN: Warm, dry, no rash. NEURO: No focal deficits.? Alert and oriented x3. PSYCH: Normal mood and affect. Objective Data Vital Signs Vital Signs: Vital Signs - 24 hr 01/23/23 14:58 01/23/23 15:18 01/23/23 15:25 Temperature 97.3 F L Pulse Rate 97 107 H 107 H Respiratory Rate 14 20 20 Blood Pressure 148/74 H Pulse Oximetry 99 Oxygen Delivery 01/23/23 21:31 01/23/23 20:00 01/24/23 05:52 Temperature 97.4 F L 97.0 F L Pulse Rate 91 70 Respiratory Rate 16 14 Blood Pressure 135/68 119/53 L Pulse Oximetry 100 99 Oxygen Delivery Room Air 01/24/23 06:44 01/24/23 06:44 01/24/23 06:52 Temperature Pulse Rate 74 74 80 Respiratory Rate 16 16 18 Blood Pressure Pulse Oximetry 98 Oxygen Delivery Room Air 01/24/23 09:11 Temperature Pulse Rate Respiratory Rate Blood Pressure Pulse Oximetry Oxygen Delivery Room Air Intake/Output Intake/Output: Intake & Output 01/21/23 01/22/23 01/23/23 01/24/23 23:59 23:59 23:59 23:59 Intake Total 1280 2310 2020 250 Output Total 1400 1999 3750 900 Balance -120 195 -0704 -156 Meds/Results Medications: Active Medications Generic Name Dose Route Start Last Admin Trade Name Freq PRN Reason Stop D
[2023-01-24 14:34] VITALS: BP 148/96; PULSE 84; RESP 18; TEMP 36.6; O2SAT 99
[2023-01-24] MEDS: cefTRIAXone 2 GM/NS 100 ML 2 GM/100 ML BAG IVPB (14:54)
--- NOTE | 2023-01-24 16:57 | PM.CNGS ---
Assessment and Plan Assessment and plan (1) Biliary dyskinesia: Code(s): K82.8 - Other specified diseases of gallbladder Status: Acute Assessment and Plan: long discussion with patient's family regarding biliary dyskinesia, unlikely source of her leukocytosis given no inflammation in the gallbladder on multiple imaging modalities, would likely benefit from cholecystectomy as an outpatient, no emergent surgical issues, would recommend low-fat diet, follow-up as outpatient (2) Leukocytosis: Code(s): D72.829 - Elevated white blood cell count, unspecified Status: Acute Assessment and Plan: unknown source, clinically has improved, would finish course of p.o. antibiotics and recheck white count as outpatient (3) Morbid obesity with BMI of 60.0-69.9, adult: Code(s): E66.01 - Morbid (severe) obesity due to excess calories; Z68.44 - Body mass index [BMI] 60.0-69.9, adult Status: Acute Assessment and Plan: discussed low-fat diet and lifestyle changes with patient History of Present Illness Consult details Consult date: 01/24/23 Reason for consult: abdominal pain Requesting physician: Choco Boone MD Narrative: The patient is a 17-year-old female presenting to the emergency department complaining of retrosternal chest pain, shortness of breath, right shoulder pain. The patient was noted to have a significant leukocytosis and was started on IV antibiotics and admitted to the hospitalist service. Over her time in the hospital, the patient right upper quadrant pain especially after eating. The patient also describes some nausea and bloating. The patient's leukocytosis has slightly improved however has not resolved. The patient reports that overall she is feeling much better. Workup, including imaging, is significant for biliary dyskinesia. Review of Systems Constitutional: Constitutional: Reports as per HPI, Denies anorexia, Denies chills, Reports fatigue, Denies fever(s), Reports headache(s), Reports lethargy, Reports malaise, Denies poor appetite, Denies weakness, Denies weight gain and Denies weight loss Eyes: Eyes: Reports no additional eye complaints ENT: Reports system reviewed and no additional complaints, except as documented Cardiovascular: Cardiovascular: Reports no additional cardiovascular complaints Respiratory: Respiratory: Reports no additional respiratory complaints Gastrointestinal: Gastrointestinal: Reports as per HPI, Reports abdominal pain, Denies belching, Reports bloating, Denies change in bowel habits, Denies change in stool character, Denies constipation, Denies GI cramping, Reports early satiety, Reports heartburn, Denies diarrhea, Denies loose stools, Reports nausea and Denies vomiting Genitourinary: Genitourinary: Reports no additional female genitourinary complaints Musculoskeletal: Musculoskeletal: Reports no additional musculoskeletal complaints Integumentary/Breasts: Skin/Breast: Reports system reviewed and no additional complaints, except as docu Neurologic: Reports system reviewed and no additional complaints, except as documented Psychiatric: Psychiatric: Reports no additional psychiatric complaints Endocrine: Endocrine: Reports no additional endocrine complaints Hematologic/Lymphatic: Hematologic/Lymphatic: Reports no additional hematologic/lymphatic complaints Allergic/Immunologic: Allergic/Immunologic: Reports no additional allergic/immunologic complaints PMFSH Family History Family History Father Cancer Mother Diabetes mellitus Social History Social History Smoking status: Never smoker Alcohol intake: never Substance use: never Lack of Transportation: No Lack of Food: Never True Current Housing: I Have Housing Concerned About Future Housing: No Difficulty Paying Gas/Electric Bills: No Difficulty Paying fo
--- NOTE | 2023-01-24 17:41 | PC.NURSE ---
Pt went for HIDA scan today. Pt had conversation with Dr. Larsen regarding out patient follow up. Pt had IV placed by Eileen this afternoon. Pt has reported cramping due to impending menstruation. Pt participates and contributes in plan of care. Will continue to monitor pt.
[2023-01-24] MEDS: FLUTICASONE PROPIONATE 0.05% NA SPR 16 GM BTL (*BKC) 1 SPRAY NASAL (21:08)
[2023-01-24] MEDS: MELATONIN 5 MG TABLET PO (21:47)
[2023-01-24 22:20] VITALS: BP 143/77; PULSE 97; RESP 18; TEMP 36.8; O2SAT 100
[2023-01-24 22:34] VITALS: O2SAT 99
[2023-01-25] MEDS: metroNIDAZOLE 500 MG/ISO 100ML 500 MG/100 ML BAG 100 MG IVPB ×2 (02:19→09:35)
[2023-01-25 06:26] LABS: Basophils Percent Auto 0.2 % (0.2-1.2); Eosinophils Absolute Auto 0.2 K/mm3 (0-0.3); Eosinophils Percent Auto 1.3 % (0-4.4); Hematocrit 36.8 % (37.0-47.0); Hemoglobin 11.3 g/dL (12.0-15.0); Immature Granulocyte Absolute 0.07 K/mm3 (0.00-0.031); Immature Granulocyte Percent A 0.4 % (0-0.5); Lymphocytes Absolute Auto 3.54 K/mm3 (0.9-3.2); Lymphocytes Percent Auto 21.6 % (18.3-44.2); Mean Corpuscular HGB Conc 30.7 g/dl (32-36); Mean Corpuscular Hemoglobin 25.5 pg (26-34); Mean Corpuscular Volume 83.1 fl (80-100); Mean Platelet Volume 9.5 fl (7.4-10.4); Monocytes Absolute Auto 1.1 K/mm3 (0.1-0.6); Monocytes Percent Auto 6.9 % (2.6-8.5); Neutrophils Absolute Auto 11.4 K/mm3 (1.3-6.7); Neutrophils Percent Auto 69.6 % (45.5-73.1); Platelet Count Result 508 k/mm3 (150-375); Red Blood Count 4.43 M/mm3 (4.2-5.4); Red Cell Distribution Width 15.9 % (11.5-14.5); White Blood Count 16.4 K/mm3 (4.5-10.0)
[2023-01-25 06:48] VITALS: BP 144/68; PULSE 89; RESP 18; TEMP 36.1; O2SAT 98
[2023-01-25] MEDS: ACETAMINOPHEN 500 MG TABLET 1000 MG PO (09:34)
[2023-01-25] MEDS: FLUTICASONE PROPIONATE 0.05% NA SPR 16 GM BTL (*BKC) 1 SPRAY NASAL (09:35)
[2023-01-25] MEDS: PANTOPRAZOLE 40 MG TABLET PO (09:35)
[2023-01-25 10:31] LABS: Alanine Aminotransferase 18 U/L (6-35); Albumin Level 4.1 g/dL (3.7-5.6); Alkaline Phosphatase 123 U/L (45-116); Anion Gap 7 mmol/L (8-16); Aspartate Amino Transferase 24 U/L (14-36); Bilirubin,Total 0.8 mg/dL (0.2-1.3); Blood Urea Nitrogen 8 mg/dL (8-21); Calcium 8.7 mg/dL (8.9-10.7); Carbon Dioxide 26 mmol/L (22-30); Chloride 104 mmol/L (98-107); Estimated CRCL calculation 168 ml/min; Estimated Glomerular Filt Rate > 60; Glucose 108 mg/dL (65-110); Magnesium 2.3 mg/dL (1.6-2.3); Potassium 3.9 mmol/L (3.4-5.0); Sodium 137 mmol/L (134-143)
--- NOTE | 2023-01-25 11:57 | PM.DS ---
DS: Admitting Diagnosis Discharge Date 01/25/2023 Admitting Diagnosis Chest discomfort DS: Discharge Diagnosis Discharge Diagnosis (1) Leukocytosis: Code(s): D72.829 - Elevated white blood cell count, unspecified Status: Acute Plan Persistent leukocytosis unclear etiology continue IV antibiotics . venous duplex for underlying DVT lung scan negative. will add flagyl for anaerobic coverage. Further evaluation with HIDA scan was performed today which showed low gallbladder ejection fraction 2% suggestive of gallbladder dysfunction likely related to acalculous cholecystitis. General surgery has been consulted and awaiting their recommendations. Continue ceftriaxone and Flagyl for antibiotic coverage. Discontinue azithromycin DS: Summary Hospital Course Reason for hospitalization: Chest discomfort Narrative: This is a 17-year-old female with past medical history significant for morbid obesity.? Patient presents today to the emergency room after new onset retrosternal chest pain nonradiating, has some shortness of breath associated with it and dizziness happened while she was sitting at her job she was her lunch break had been lifting heavy equipment and boxes, had been in her usual state of health the day before and up until that moment although has really bad reflux denies any shortness of breath, cough, sputum production, fevers, rigors, chills, nausea, vomiting, diarrhea, abdominal pain, leg swelling, .? Preliminary workup was significant for chest x-ray was reported as: Hospital Course: 17-year-old female presented with abdominal pain was found to biliary dyskinesia, her symptoms have resolved seen by surgery service does not recommended any surgical intervention, will discharge the patient today, patient with a elevated white count will have CBCs outpatient, also discharge the patient on antibioticc and will follow-up with surgery as an outpatient. Time Spent with Patient Time attestation: Total time spent providing and/or coordinating discharge services: DS: Data Data Completed and Pending Labs on day of discharge: Labs from last 24 hours 01/25/23 01/25/23 07:42 06:14 WBC 16.4 H RBC 4.43 Hgb 11.3 L Hct 36.8 L MCV 83.1 MCH 25.5 L MCHC 30.7 L RDW 15.9 H Plt Count 508 H MPV 9.5 Immature Gran % (Auto) 0.4 Neut % (Auto) 69.6 Lymph % (Auto) 21.6 Webb % (Auto) 6.9 Eos % (Auto) 1.3 Baso % (Auto) 0.2 Lymph # (Auto) 3.54 H Webb # (Auto) 1.1 H Eos # (Auto) 0.2 Baso # (Auto) 0.0 Abs Immat Gran (auto) 0.07 H Absolute Neuts (auto) 11.4 H Absolute Nucleated RBC 0.0 Nucleated RBC % 0.0 Sodium 137 Potassium 3.9 Chloride 104 Carbon Dioxide 26 Anion Gap 7 L BUN 8 Creatinine 0.60 L Estim Creat Clear Calc 168 Estimated GFR > 60 Glucose 108 Calcium 8.7 L Magnesium 2.3 Total Bilirubin 0.8 AST 24 ALT 18 Alkaline Phosphatase 123 H Total Protein 8.0 Albumin 4.1 Preliminary micro results at discharge 01/21/23 01:42 Blood Culture - Preliminary Blood 01/21/23 01:42 Blood Culture - Preliminary Blood Discharge Plan Discharge Attending physician on discharge: Jeyson Thomas Consulting providers: Janessa Larsen; Mingo aClderón; Romel Herman; Petros Dennis; Rom Duke V.; Choco Boone; Jeevan Black Discharging Clinician: Jeyson Thomas Patient Disposition: Home, Self-Care Activity: as tolerated Diet: low fat Discharge Instructions: Patient to follow-up with her primary care provide and her surgeon as scheduled, patient instructed to avoid fatty meals and any symptoms worsen to go to nearest emergency department Patient Instructions: Antibiotic Form, Chest Pain (DC), Acute Bronchitis (GEN) Stand Alone Forms: General Discharge Information Follow-up/Referrals: Janessa Larsen MD [Physician] - UNKNOWN,DOCTOR [Primary Care Provider] - Discharge Medications: New
[2023-01-25] MEDS: cefTRIAXone 2 GM/NS 100 ML 2 GM/100 ML BAG IVPB (12:03)
--- NOTE | 2023-01-25 12:52 | PM.PNGS ---
Progress Note: A&P Assessment and Plan (1) Biliary dyskinesia: Code(s): K82.8 - Other specified diseases of gallbladder Status: Acute Assessment and Plan: jony heart healthy diet, no abd pain, ok to dc home from surgical standpoint on low fat diet, f/u as outpt (2) Leukocytosis: Code(s): D72.829 - Elevated white blood cell count, unspecified Status: Acute Assessment and Plan: unknown etiology, clinically improved, would complete course of abx and recheck as outpt Subjective Subjective Date/Time Seen: 01/25/23 12:52 Interval history: feels good, jony diet, no abd pain, no N/V Review of Systems Review of Systems: All systems reviewed & are unremarkable except as noted in HPI and below Exam Const: General: cooperative, comfortable and no acute distress Resp: Auscultation: clear to auscultation bilaterally Cardio: Rate: regular rate Rhythm: regular rhythm GI: Inspection: normal to inspection and non-distended GI Palp: No abdominal tenderness, Yes Soft to palpation, No Tenderness to palpation present (GI), No Guarding due to palpation present (GI) and No Rigid due to palpation Objective Data Vital Signs Vital Signs: Vital Signs - 24 hr 01/24/23 14:34 01/24/23 22:20 01/24/23 20:00 Temperature 36.6 C 36.8 C Pulse Rate 84 97 Respiratory Rate 18 18 Blood Pressure 148/96 H 143/77 H Pulse Oximetry 99 100 Oxygen Delivery Room Air 01/24/23 22:34 01/25/23 06:48 01/25/23 09:34 Temperature 36.1 C L Pulse Rate 89 Respiratory Rate 18 Blood Pressure 144/68 H Pulse Oximetry 99 98 Oxygen Delivery Room Air Room Air Intake/Output Intake/Output: Intake & Output 01/22/23 01/23/23 01/24/23 01/25/23 23:59 23:59 23:59 23:59 Intake Total 2309 2019 4070 2780 Output Total 19990 2100 2400 Balance 310 -1730 1970 380 Meds/Results Medications: Active Medications Generic Name Dose Route Start Last Admin Trade Name Freq PRN Reason Stop Dose Admin Acetaminophen 1,000 mg 01/21/23 02:53 01/25/23 09:34 Acetaminophen 500 Mg Tablet PO 1,000 mg Q6H PRN Administration Mild Pain (1-3) or Fever Albuterol 2.5 mg 01/24/23 13:20 Albuterol Sulfate Neb 2.5 Mg/3 Ml Inh INHALATION Q6HRT PRN Shortness Of Breath Or Wheezing Fluticasone Propionate 1 spray 01/24/23 21:00 01/25/23 09:35 Fluticasone Propionate 0.05% Na Spr 16 Gm Btl (*Bkc) NASAL 1 spray Q12HR MARTI Administration Metronidazole 500 mg in 100 mls @ 100 mls/hr 01/23/23 18:00 01/25/23 09:35 Flagyl 500 Mg/Iso Soln 100 Ml IVPB 100 mls/hr Q8H MARTI Administration Ceftriaxone Sodium 2 gm in 100 mls @ 200 mls/hr 01/24/23 13:00 01/25/23 12:03 Rocephin 2 Gm/Ns 100 Ml IVPB 200 mls/hr DAILY@1200 MARTI Administration Ipratropium [place] 0.5 mg 01/24/23 13:20 Ipratropium Br 0.02% Inh Soln 0.5 Mg/2.5 Ml Vial INHALATION Q6HRT PRN Shortness Of Breath Or Wheezing Lactase 3,000 unit 01/23/23 12:34 01/23/23 14:12 Lactase 3,000 Unit Tablet PO 3,000 unit TIDWM PRN Administration Lactose Intolerance Melatonin 5 mg 01/22/23 00:25 01/24/23 21:47 Melatonin 5 Mg Tablet PO 5 mg HS MARTI Administration Morphine Sulfate 4 mg 01/21/23 00:48 Morphine Sulfate (*Crx) 4 Mg/Ml Inj IV PUSH Q2H PRN Pain Rated 7-10 Ondansetron HCl 4 mg 01/21/23 00:48 Ondansetron Inj 4 Mg/2 Ml Vial IV PUSH Q4H PRN Nausea Pantoprazole Sodium 40 mg 01/23/23 09:00 01/25/23 09:35 Pantoprazole 40 Mg Tablet PO 40 mg QAM MARTI Administration Radiology Results: ITS Impressions Abdomen Ultrasound 01/21/23 10:33 IMPRESSION: Negative gallbladder Limited evaluation of pancreas Chest/Abdomen/Pelvis CT 01/21/23 16:46 Impression: No significant abnormalities seen. Pulmonary Perfusion Imaging 01/23/23 11:38 IMPRESSION: 1. Pulmonary embolism absent (normal perfusion). Chest X-Ray 0
--- NOTE | 2023-01-25 13:25 | PC.NURSE ---
Pt is A&O4 female who has participated and contributed in plan of care. Pt reports cramping this morning. Pt treated with tylenol. Pt getting IV abx and tolerating well. Pt discharging home this afternoon. Pt educated on discharge instructions. Pt verbalizes understanding. Pharmacy verified with pt prescriptions transmitted to pt pharmacy. Pt IV removed, tip intact, IV was ultrasound placed. Pt tolerated removal well. IV site normal for pt. Pt denied need for wheel chair to car on discharge. Pt walked out with father.
== END 2023-01-25 13:35 | disposition home or self-care (01) | DRG 816 ==
LOC: ANHED 01-21 00:58 → ANHIMU 01-21 02:03 → ANH3MEDSUR 01-21 21:49
PROVIDERS: Emergency Medicine; Internal Medicine; Admitting Provider Internal Medicine; Emergency Provider Emergency Medicine; Visit Provider Family Medicine
DX: D72.829 Elevated white blood cell count, unspecified (principal); R07.9 Chest pain, unspecified; E66.01 Morbid (severe) obesity due to excess calories; Z83.3 Family history of diabetes mellitus; K82.8 Other specified diseases of gallbladder
CPT/HCPCS: 36415; 71046; 71250; 74176; 76705; 78227; 78580; 80048; 80053; 81001; 81025; 83690; 83735; 84484; 85025; 85610; 85730; 87040; 87086; 87088; 93005; 93970; 94640; 96365; 96366; 96367; 99285; A9270; A9537; A9540; G0378; J0456; J0696; J2805